=== PATIENT | female | born 1940 | race Caucasian/White ===

== ENCOUNTER → 2016-12-17 | Outpatient (CLI) | payer OTHER ==
--- NOTE | 2016-12-17 15:15 | REPMRS ---
Patient History The patient states she had a clinical breast exam in 08/2016. Patient has history of cancer in the right breast at age 55. No known family history of cancer. Malignant excisional biopsy of the right breast, 1995. Radiation therapy of the right breast, 1995. Took hormonal contraceptives for 3 months. Took tamoxifen for 5 years. Digital Woman Screen Mammo: December 17, 2016 - Exam #: [id number] Bilateral CC and MLO view(s) were taken. Technologist: Karo Salas, Technologist Prior study comparison: November 23, 2015, digital woman screen mammo performed at [facility]. October 03, 2014, digital woman screen mammo performed at [facility]. September 30, 2013, bilateral bilat screen digital mammo[facility] FINDINGS: The breast tissue is heterogeneously dense. This may lower the sensitivity of mammography. There has been no change in the appearance of the mammogram from the prior studies. There is a moderate amount of residual fibroglandular tissue which is greater left than right as before. Smaller right breast from prior surgery for malignancy. There is no interval development of dominant mass, architectural distortion, or clustered microcalcification typical of malignancy. Scattered lymph nodes are seen in the axillae.Large coarse benign appearing calcifications are present. No significant changes when compared with prior studies. ASSESSMENT: BI-RADS/ACR category 2 mammogram. Benign finding(s). Recommendation Routine screening mammogram in 1 year (for women over age 40). This mammogram was interpreted with the aid of an FDA-approved computer-aided dectection system. A. Negative x-ray reports should not delay biopsy if a dominant or clinically suspicious mass is present. B. Four to eight percent of cancers are not identified by mammography. C. Adenosis and dense breast may obscure an underlying neoplasm. Electronically Signed By: lVadimir Patel MD 12/17/16 2205
== END ==
LOC: M WHC 12:38
PROVIDERS: ATTEND Family Medicine
DX: Z12.31 Encounter for screening mammogram for malignant neoplasm of breast (principal)

== ENCOUNTER 2017-12-17 08:23 | Day surgery (SDC) | payer OTHER ==
[~2017-12-17 08:23] MED LIST: ACETAMINOPHEN 325 MG TAB PO; PHENYLEPHRINE HCL 10 % OPHTH. SOL 5ML XX; PROPARACAINE 0.5% OPHTH SOL 15ML OD
[2017-12-17] MEDS ORDERED: TRIMETHOBENZAMIDE 300 MG CAP PO ×2 (08:30)
[2017-12-17] MEDS: PHENYLEPHRINE 2.5% OPHTH SOL 2ML XX ×2 (08:48)
[2017-12-17] MEDS: LIDOCAINE 3.5 % 1ML OPHTH TOPICAL GEL OU ×2 (08:48)
[2017-12-17] MEDS: TROPICAMIDE 1% OPHTH SOLN 2ML XX ×2 (08:48)
[2017-12-17] MEDS: OFLOXACIN 0.3 % (OCUFLOX) OPTH SOL 5ML XX ×2 (08:48)
[2017-12-17] MEDS: CYCLOPENTOLATE 2% OPHTH SOLN 2ML BTL XX ×2 (08:48)
[2017-12-17] MEDS ORDERED: MIDAZOLAM INJ 2 MG/2 ML VIAL (J2250) As Ordered ×2 (08:56)
[2017-12-17] MEDS ORDERED: fentaNYL 100 MCG/2 ML INJECTION (J3010) As Ordered ×2 (08:57)
[2017-12-17] MEDS: CEFUROXIME 1MG/0.1ML INTRACAMERAL INJ As Ordered ×4 (09:09→09:33)
[2017-12-17] MEDS: POVIDONE-IODINE 5% OPHTH PREP SOL 30ML As Ordered ×2 (09:24)
[2017-12-17] MEDS: LIDOCAINE 1% SDV 5 ML VIAL As Ordered ×2 (09:33)
[2017-12-17] MEDS: HEALON DUET (HEALON 10MG/ML 0.55ML & HEALON ENDOCOAT 30MG/ML 0.85ML) As Ordered ×2 (09:33)
[2017-12-17] MEDS: BSS with VANC/TOB/EPI for EYE CASES IR ×2 (09:33)
[2017-12-17] MEDS: KETOROLAC 0.5% OPHTH SOLN OD ×2 (10:03)
[2017-12-17] MEDS: AcetaZOLAMIDE 500 MG ER CAP PO ×2 (10:03)
== END 2017-12-17 10:30 | disposition home or self-care (01) ==
LOC: M SDC 08:23
DX: H25.9 Unspecified age-related cataract (principal); H40.811 Glaucoma with increased episcleral venous pressure, right eye; I50.9 Heart failure, unspecified; Z79.899 Other long term (current) drug therapy; Z92.3 Personal history of irradiation; R06.83 Snoring
CPT/HCPCS: 66984

== ENCOUNTER 2021-03-20 13:12 | Inpatient (IN) | payer MEDICARE ==
[~2021-03-20] VITALS: Ht 162.6 cm; Wt 78.3 kg
[~2021-03-20 13:12] MED LIST changes: -ALBU8.5H INH; -ASPI81TA26 PO; -VITMTA PO; -XALA0.007 OU
[2021-03-20] MEDS ORDERED: VITMTA PO (13:25)
[2021-03-20] MEDS ORDERED: ASPI81TA26 PO (13:25)
[2021-03-20] MEDS ORDERED: ALBU8.5H INH (13:25)
[2021-03-20 14:02] LABS: BASO # 0.1 10^3/uL (0.0-0.2); BASO % 0.4 % (0.0-1.0); EOS % 0.2 % (0.0-3.0); HEMATOCRIT 42.5 % (36.0-47.0); LYMPH # 0.7 10^3/uL (1.5-5.0); LYMPH % 5.1 % (24.0-44.0); MEAN CORPUSCULAR HEMOGLOBIN 30.6 pg (27.0-33.0); MEAN CORPUSCULAR HGB CONC 32.9 g/dl (32.0-36.5); MEAN CORPUSCULAR VOLUME 92.8 fl (80.0-96.0); MONO # 0.3 10^3/uL (0.0-0.8); MONO % 2.2 % (2.0-8.0); NEUTROPHILS # 11.9 10^3/uL (1.5-8.5); NEUTROPHILS % 91.6 % (36.0-66.0); PLATELET COUNT, AUTOMATED 197 10^3/uL (150-450); RED BLOOD COUNT 4.58 10^6/uL (4.00-5.40)
[2021-03-20 14:03] LABS: ABG BASE EXCESS 2.4 (-2.0-2.0); ABG O2 SATURATION 93.9 % (95.0-99.0); ABG PARTIAL PRESSURE CO2 36.9 mmHg (35.0-45.0); ABG PARTIAL PRESSURE O2 62.5 mmHg (75.0-100.0); ABG STANDARD HCO3 26.5 MEQ/L (22.0-26.0); ABG TOTAL CO2 27.1 MEQ/L (23.0-31.0); ABG pH (ARTERIAL) 7.465 UNITS (7.350-7.450)
[2021-03-20] MEDS ORDERED: NITROGLYCERIN 2% OINT 1 GM *U/D* PKT TOP ONE (14:10)
--- NOTE | 2021-03-20 14:10 | REP ---
INDICATION: DYSPNEA/COUGH. 1:56 p.m. radiograph. COMPARISON: Comparison chest x-ray March 20, 2021. 12:27 p.m. radiograph. TECHNIQUE: Portable upright AP chest radiograph. FINDINGS: Right hemidiaphragm remains elevated. There is a prominent interstitial pattern diffusely. These are a little more prominent or confluent in the right upper lobe region. These findings are unchanged from the earlier radiograph. Monitoring electrodes and oxygen delivery tubing are present. Heart size is unchanged and mildly prominent. Old healed fracture is seen in the surgical neck of the left humerus.. IMPRESSION: Diffuse interstitial lung disease pattern most pronounced in the right upper lobe unchanged from earlier today. Elevated right hemidiaphragm. Mild cardiomegaly.. <Electronically signed by Kalin Baum > 03/20/21 [id number]
[2021-03-20 14:37] LABS: ALBUMIN 3.7 GM/DL (3.2-5.2); ALT/SGPT 23 U/L (12-78); BILIRUBIN,DIRECT 0.1 MG/DL (0.0-0.2); BILIRUBIN,TOTAL 0.7 MG/DL (0.2-1.0); BLOOD UREA NITROGEN 15 MG/DL (7-18); CALCIUM LEVEL 8.8 MG/DL (8.8-10.2); CARBON DIOXIDE LEVEL 27 MEQ/L (21-32); CHLORIDE LEVEL 104 MEQ/L (98-107); CPK CREATINE PHOSPHOKINASE 72 U/L (26-192); CREATININE FOR GFR 0.88 MG/DL (0.55-1.30); GLOMERULAR FILTRATION RATE > 60.0 (>39); GLUCOSE, FASTING 142 MG/DL (70-100); MB/CK RELATIVE INDEX 1.39 (< OR =4); NT-PRO BNP 874 PG/ML (<450); POTASSIUM SERUM 4.3 MEQ/L (3.5-5.1); SODIUM LEVEL 136 MEQ/L (136-145); TOTAL PROTEIN 7.9 GM/DL (6.4-8.2); TROPONIN I < 0.02 NG/ML (< 0.10)
[2021-03-20] MEDS ORDERED: ISOVUE-370 76% 100ML VIAL As Ordered ONE (14:41)
[2021-03-20] MEDS ORDERED: FUROSEMIDE 40MG/4ML VIAL (J1940) IV ONE (15:00)
--- NOTE | 2021-03-20 15:46 | REP ---
INDICATION: sob COMPARISON: None. TECHNIQUE: Axial contrast enhanced images from the thoracic inlet to the upper abdomen using pulmonary embolus technique with multiplanar re-formations. 75 ml Isovue 370 intravenous contrast material administered without complication. This CT examination was performed using the following dose reduction techniques: Automated exposure control, adjustment of mA and/or kv according to the patient's size, and use of iterative reconstruction technique. FINDINGS: Examination is somewhat limited by respiratory motion artifact and diffuse pleuroparenchymal changes. No obvious pulmonary embolus noted. Thoracic aorta without aneurysm or dissection. Cardiomegaly and atherosclerotic changes are appreciated without pericardial effusion. Lung rangel demonstrate advanced COPD/emphysematous changes with bronchiectasis and scattered chronic interstitial disease. Patchy diffuse bilateral ground-glass opacities along with mild primarily lingular and bibasilar atelectasis. No significant effusion. No pneumothorax. Mediastinal and hilar adenopathy with pre-vascular lymph nodes measuring up to 19 mm noted. IMPRESSION: 1. No definite pulmonary embolus. 2. Advanced chronic interstitial disease. 3. Scattered bilateral ground-glass opacities, minimal basilar atelectasis, and small left pleural reaction suggest superimposed acute changes. <Electronically signed by Hernan Durant > 03/20/21 [id number]
[2021-03-20] MEDS ORDERED: XALA0.007 OU (16:41)
[2021-03-20 17:39] LABS: RSV AMPLIFICATION NEGATIVE (NEGATIVE)
[2021-03-20] MEDS ORDERED: LABETALOL 100MG/20ML VIAL IV STA (17:45)
[2021-03-20] MEDS ORDERED: ACETAMINOPHEN TAB 650MG DOSE (2X325MG) PO PRN (17:45)
[2021-03-20] MEDS ORDERED: MOM 30ML SUSPENSION UDC PO PRN (17:45)
[2021-03-20] MEDS ORDERED: LEVALBUTEROL 1.25 MG/0.5 ML CONCENTRATE NEB INH PRN (17:45)
--- NOTE | 2021-03-20 18:02 | HPEPDOC ---
[facility] Medical History & Physical Date of Admission Mar 20, 2021 Date of Service: Mar 20, 2021 History and Physical Chief complaint: Presented to the emergency room with complaints of weakness and shortness of breath that has been progressive 1 month History of present illness: Patient is a 80-year-old female who presented to the emergency room from urgent care with weakness and shortness of breath. Patient reports that over the duration of 1 month her shortness of breath has been progressively worsening. Patient denies any chest pain but does report a cough that is nonproductive. She denies any palpitations. Patient reports that she sleeps with 2 pillows at night chronically has woken up several times recently with shortness of breath. She herself denies any lower extremity edema. Patient denies any nausea, vomiting, abdominal pain consultation, diarrhea, or urinary discomfort. She denies any recent fevers, chills. Patient reports that recently she has taken [id number] Claritin medication for her sinuses over the last 3 days. Patient reports that she had a nuclear stress test completed one year ago with Dr. Lindquist that was reportedly negative. Past Medical History: Hx of Hypertension; reported to have stopped taking medications. 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 Review of Systems: 10 point review of systems complete, all negative otherwise stated in HPI Physical exam: - Vitals: BP [194/93], HR [82], RR [16], Sat [96%RA], Temp [97.6F] - General: Lying in bed, No acute distress, Speaking in full sentences, AAOx3 - HEENT: NC, AT, PERRLA - CVS: RRR, +S1S2 - Lungs: Fair air entry bilaterally, No appreciable wheezing / rhonchi; bilat eral crackles can be appreciated - Abdomen: Soft, Non-distended, Non-tender - Extremities: Trace to minimal LE edema, No calf tenderness - Neuro: No focal motor or sensory deficit - Skin: No visible rashes Labs: See below Imaging: See below EKG: See below Assessment and Plan: Hypertensive urgency - Patients blood pressure emergency room was noted to be systolics of 190s to 200 - Patient is reporting SOB with exertion - Physical with evidence of crackles - EKG reviewed without any ischemic changes - Troponin x 2 sets done today negative; will continue to tend - s/p Furosemide and Nitroglycerin in the ER - Will resume Lisinopril based on prior outpatient regimen; will give dose of Lisinopril Acute hypoxic respiratory failure - possibly 2/2 acute CHF exacerbation (2/2 above), less likely 2/2 COPD - Patient reports that she does feel better currently well on oxygen - BNP elevated - Lungs with crackles noted - s/p Furosemide - Will continue with strict ins/outs, daily weight, fluid restriction - Will check ECHO - c/w Telemetry monitoring - Will hold additional diuretics Leukocytosis - Reports a non-productive cough - Patient is afebrile - Imaging without any signs of pneumonia - Will hold off on starting antibiotics at this time - Will check procalcitonin Glaucoma - c/w Home medications DVT prophylaxis - Will start Lovenox Vital Signs Vital Signs Date Time Temp Pulse Resp B/P (MAP) Pulse Ox O2 Delivery O2 Flow Rate FiO2 03/20/21 17:30 90 184/80 (114) 97 Nasal Cannula 4.0 03/20/21 13:12 97.6 24 Laboratory Data Labs 24H Laboratory Tests 2 03/20/21 13:43: Blood Gas Bicarbonate Standard 26.5H, Arterial Blood pH 7.465H, Arterial Blood Partial Pressure CO2 36.9, Arterial Blood Partial Pressure O2 62.5L, Arterial Blood Total CO2 27.1, Arterial Blood HCO3 26.0, Arterial Blood Base Excess 2.4H, Arterial Blood Oxygen Saturation 93.9L 03/20/21 13:44: Immature Granulocyte % (Auto) 0.5, Neutrophils (%) (Auto) 91.6H, Lymphocytes (%) (Auto) 5.1L, Monocytes (%) (Auto) 2.2, Eosinophils (%) (Auto) 0.2, Basophils (%) (Auto) 0.4, Neutrophils # (Auto) 11.9H, Lymphocytes # (Auto) 0.7L, Monocytes # (Auto) 0.3, Eosinophils # (Auto) 0.0, Basophils # (Auto) 0.1, Nucleated Red Blood Cells % (auto) 0.0, Anion Gap 5L, Glomerular Filtration Rate > 60.0, Calcium Level 8.8, Total Bilirubin 0.7, Direct Bilirubin 0.1, Aspartate Amino Transf (AST/SGOT) 32, Alanine Aminotransferase (ALT/SGPT) 23, Alkaline Phosphatase 87, Total Creatine Kinase 72, Creatine Kinase MB 1.0, Creatine Kinase MB Relative Index 1.39, Troponin I < 0.02, JM-Vde-S-Type Natriuretic Peptide 874H, Total Protein 7.9, Albumin 3.7, Albumin/Globulin Ratio 0.9L 03/20/21 16:47: Coronavirus (COVID-19)(PCR) NEGATIVE, Influenza Type A (RT-PCR) NEGATIVE, Influenza Type B (RT-PCR) NEGATIVE, Respiratory Syncytial Virus (PCR) NEGATIVE CBC/BMP Laboratory Tests 03/20/21 13:44 Home Medications Scheduled Aspirin (Aspirin EC) 81 Mg Tablet.dr, 81 MG PO QHS Latanoprost (Xalatan) 0.005% 2.5ML Drops, 1 DROP OU QHS Multivitamins (Thera M Plus Tablet) 1 Each Tablet, 1 TAB PO QHS Scheduled PRN Albuterol Sulfate (Albuterol Sulfate Hfa) 8.5 Gm Hfa.aer.ad, 2 PUFFS INH Q4H PRN for SHORTNESS OF BREATH Allergies Coded Allergies: naproxen (Verified Adverse Reaction, Unknown, ITCHING, 03/20/21) ELOY STEWART MD Mar 20, 2021 18:02
[2021-03-20 19:32] LABS: CK-MB VALUE MASS < 1.0 NG/ML (<3.6); CPK CREATINE PHOSPHOKINASE 39 U/L (26-192); MB/CK RELATIVE INDEX 2.56 (< OR =4); TROPONIN I < 0.02 NG/ML (< 0.10)
[2021-03-20] MEDS: LEVALBUTEROL 1.25 MG/0.5 ML CONCENTRATE NEB INH SCH ×2 (20:10→23:07)
[2021-03-20 20:24] VITALS: BP 141/75
[2021-03-20] MEDS: DOCUSATE SODIUM 100MG CAPSULE PO SCH (21:30)
[2021-03-20] MEDS: guaiFENesin ER 600 MG TAB PO SCH (21:30)
[2021-03-21 00:26] VITALS: BP 142/66
[2021-03-21 01:36] LABS: CK-MB VALUE MASS 1.1 NG/ML (<3.6); CPK CREATINE PHOSPHOKINASE 39 U/L (26-192); MB/CK RELATIVE INDEX 2.82 (< OR =4); TROPONIN I < 0.02 NG/ML (< 0.10)
[2021-03-21] MEDS: LEVALBUTEROL 1.25 MG/0.5 ML CONCENTRATE NEB INH SCH ×6 (03:04→23:59)
[2021-03-21 03:26] VITALS: BP 153/74
[2021-03-21 05:28] LABS: BASO % 0.1 % (0.0-1.0); HEMATOCRIT 37.8 % (36.0-47.0); HEMOGLOBIN 12.5 g/dl (12.0-15.5); LYMPH # 1.1 10^3/uL (1.5-5.0); LYMPH % 8.2 % (24.0-44.0); MEAN CORPUSCULAR HEMOGLOBIN 30.2 pg (27.0-33.0); MEAN CORPUSCULAR HGB CONC 33.1 g/dl (32.0-36.5); MEAN CORPUSCULAR VOLUME 91.3 fl (80.0-96.0); MONO # 0.9 10^3/uL (0.0-0.8); MONO % 6.3 % (2.0-8.0); NEUTROPHILS # 11.7 10^3/uL (1.5-8.5); NEUTROPHILS % 84.8 % (36.0-66.0); PLATELET COUNT, AUTOMATED 185 10^3/uL (150-450); RED BLOOD COUNT 4.14 10^6/uL (4.00-5.40); WHITE BLOOD COUNT 13.8 10^3/uL (4.0-10.0)
[2021-03-21 05:55] LABS: BLOOD UREA NITROGEN 13 MG/DL (7-18); CALCIUM LEVEL 8.5 MG/DL (8.8-10.2); CARBON DIOXIDE LEVEL 29 MEQ/L (21-32); CHLORIDE LEVEL 105 MEQ/L (98-107); CREATININE FOR GFR 0.72 MG/DL (0.55-1.30); GLOMERULAR FILTRATION RATE > 60.0 (>39); GLUCOSE, FASTING 134 MG/DL (70-100); MAGNESIUM LEVEL 2.2 MG/DL (1.8-2.4); POTASSIUM SERUM 3.7 MEQ/L (3.5-5.1); SODIUM LEVEL 139 MEQ/L (136-145)
[2021-03-21 08:00] VITALS: BP 154/74
[2021-03-21] MEDS: guaiFENesin ER 600 MG TAB PO SCH ×2 (08:07→21:44)
[2021-03-21] MEDS: FUROSEMIDE 40MG/4ML VIAL (J1940) IV SCH ×2 (08:07→16:43)
[2021-03-21] MEDS: ENOXAPARIN 40MG/0.4ML SYRINGE (J1650 PER 10MG) SC SCH (08:08)
[2021-03-21] MEDS: DOCUSATE SODIUM 100MG CAPSULE PO SCH ×2 (08:08→21:00)
--- NOTE | 2021-03-21 10:03 | IPNPDOC ---
Text Note Date of Service The patient was seen on 03/21/21. NOTE Subjective: Patient is a 80-year-old female who presented to the ER from urgent care with weakness and shortness of breath. Patient reports that over the duration of 1 month her shortness of breath has been progressively worsening. Patient reports that she sleeps with 2 pillows at night chronically has woken up several times recently with shortness of breath. Patient reports that she had a nuclear stress test completed one year ago with Dr. Lindquist that was reportedly negative. Upon to emergency room, patient's systolic blood pressure was noted to be in the 200s. Patient was admitted to the hospital service for hypertensive urgency and suspected CHF exacerbation. Patient was seen and examined at the bedside. Currently patient reports that her breathing is doing better. She denies any chest pain or palpitations. Denies any cough, nausea, vomiting, abdominal pain or diarrhea. Objective: Vitals (See below) General: Sitting up in bed and appears comfortable, AAOx3 HEENT: NC, AT CVS: +S1S2 Lungs: Fair air entry b/l, there are crackles appreciated bilaterally. No evidence of wheezing or rhonchi Abdomen: Soft, ND, NT Extremities: - Edema, - Calf tenderness Imaging: CXR 03/20: Diffuse interstitial lung disease pattern most pronounced in the right upper lobe unchanged from earlier today. Elevated right hemidiaphragm. Mild cardiomegaly. CTA Chest 03/20: 1. No definite pulmonary embolus. 2. Advanced chronic interstitial disease. 3. Scattered bilateral ground-glass opacities, minimal basilar atelectasis, and small left pleural reaction suggest superimposed acute changes. Assessment and plan: HTN; s/p Hypertensive urgency - Patients blood pressure ER was noted to be systolics of 190s to 200; blood pressures doing better this morning - EKG reviewed without any ischemic changes - Troponin trend negative - s/p Furosemide and Nitroglycerin in the ER - c/w Lisinopril based on prior outpatient regimen Acute hypoxic respiratory failure - possibly 2/2 acute CHF exacerbation (2/2 above), possibly 2/2 interstitial lung disease - Clinically patient has reported improvement in - BNP elevated - Lungs with crackles noted bilaterally - c/w strict ins/outs, daily weight, fluid restriction - ECHO pending - c/w Telemetry monitoring - Will continue with Diuresis this morning Leukocytosis - Reports a non-productive cough - Patient is afebrile - Imaging without any signs of pneumonia - Will continue to hold antibiotics at this time - Procalcitonin negative Glaucoma - c/w Home medications DVT prophylaxis - c/w Lovenox Disposition: - Pending clinical improvement [place], I+O [place], I+O Laboratory Tests 03/20/21 13:44 03/21/21 04:59 Vital Signs Date Time Temp Pulse Resp B/P (MAP) Pulse Ox O2 Delivery O2 Flow Rate FiO2 03/21/21 08:00 98.1 90 20 154/74 (100) 97 Nasal Cannula 3.0 I&O- Last 24 Hours up to 6 AM 03/21/21 05:59 Intake Total 220 ml Output Total 950 ml Balance -730 ml ELOY STEWART MD Mar 21, 2021 10:03
--- NOTE | 2021-03-21 10:59 | ECGEPIP ---
[facility] - ED Test Date: 2021-03-20 Pat Name: LUIS IGLESIAS Department: Room: - Gender: Female Route Rider: ELLEN : 1940 Requested By: LENI Cee Order Number: [id number] Reading MD: Stephanie Patel Measurements Intervals [place] Rate: 93 P: 44 SC: 164 QRS: 0 QRSD: 114 T: 15 QT: 394 QTc: 489 Interpretive Statements Normal sinus rhythm Possible Left atrial enlargement Right bundle branch block NSTTW abnormalities prolonged qtc No prior Electronically Signed on 03-21-2021 10:59:02 EDT by Stephanie Patel
[2021-03-21 12:00] VITALS: BP 133/64
[2021-03-21 16:00] VITALS: BP 140/71
[2021-03-21] MEDS ORDERED: SODIUM CHLORIDE HYPERTONIC 3% 15ML NEB SOL NEB ONE (16:00)
[2021-03-21 20:00] VITALS: BP 128/63
[2021-03-21] MEDS: LATANOPROST 0.005% OPHTH SOLN 2.5 ML OU SCH (21:44)
[2021-03-22] VITALS (8 sets, daily range): BP systolic 120–140; BP diastolic 58–72
[2021-03-22] MEDS: LEVALBUTEROL 1.25 MG/0.5 ML CONCENTRATE NEB INH SCH ×2 (04:00→07:10)
[2021-03-22 04:58] LABS: BASO # 0.1 10^3/uL (0.0-0.2); BASO % 0.7 % (0.0-1.0); EOS # 0.3 10^3/uL (0.0-0.5); EOS % 2.5 % (0.0-3.0); HEMATOCRIT 38.8 % (36.0-47.0); HEMOGLOBIN 12.7 g/dl (12.0-15.5); LYMPH # 2.8 10^3/uL (1.5-5.0); LYMPH % 24.1 % (24.0-44.0); MEAN CORPUSCULAR HEMOGLOBIN 29.7 pg (27.0-33.0); MEAN CORPUSCULAR HGB CONC 32.7 g/dl (32.0-36.5); MEAN CORPUSCULAR VOLUME 90.7 fl (80.0-96.0); MONO # 1.2 10^3/uL (0.0-0.8); MONO % 10.4 % (2.0-8.0); NEUTROPHILS # 7.1 10^3/uL (1.5-8.5); PLATELET COUNT, AUTOMATED 196 10^3/uL (150-450); RED BLOOD COUNT 4.28 10^6/uL (4.00-5.40); WHITE BLOOD COUNT 11.4 10^3/uL (4.0-10.0)
[2021-03-22 05:24] LABS: BLOOD UREA NITROGEN 20 MG/DL (7-18); CALCIUM LEVEL 8.6 MG/DL (8.8-10.2); CARBON DIOXIDE LEVEL 34 MEQ/L (21-32); CHLORIDE LEVEL 102 MEQ/L (98-107); CREATININE FOR GFR 0.85 MG/DL (0.55-1.30); GLOMERULAR FILTRATION RATE > 60.0 (>39); GLUCOSE, FASTING 98 MG/DL (70-100); MAGNESIUM LEVEL 2.2 MG/DL (1.8-2.4); POTASSIUM SERUM 3.7 MEQ/L (3.5-5.1); SODIUM LEVEL 140 MEQ/L (136-145)
[2021-03-22] MEDS ORDERED: BUDESONIDE 180MCG INHALER (PULMICORT FLEXHALER) INH SCH (08:00)
[2021-03-22] MEDS: DOCUSATE SODIUM 100MG CAPSULE PO SCH ×2 (08:41→20:53)
[2021-03-22] MEDS: guaiFENesin ER 600 MG TAB PO SCH ×2 (08:41→20:53)
[2021-03-22] MEDS: FUROSEMIDE 40MG/4ML VIAL (J1940) IV SCH (08:42)
[2021-03-22] MEDS: ENOXAPARIN 40MG/0.4ML SYRINGE (J1650 PER 10MG) SC SCH (08:42)
[2021-03-22] MEDS: predniSONE 20 MG TAB PO SCH (09:45)
[2021-03-22] MEDS: IPRATROPIUM 0.5MG/ALBUTEROL 2.5MG INH SOL UD 3ML (DUONEB) NEB SCH ×3 (10:15→19:31)
--- NOTE | 2021-03-22 10:29 | CR ---
PULMONARY CONSULTATION DATE: 03/22/2021 REASON FOR CONSULTATION: Shortness of breath, hypoxia. SUBJECTIVE: Mrs. Strickland is a 80-year-old female who presents to [facility] ER with progressive shortness of breath that has worsened in the last week to the point where she is gasping for air with any minimal exertion. Her story dates back two years ago when the shortness of breath started and was diagnosed with pneumonia at [facility] and was treated and improved to her baseline. She states that she was diagnosed with pneumonia about 1-2 times previously. She started noticing worsening in her shortness of breath again about a year ago where she would walk from her house to her mailbox and would get out of breath and needed to sit down to alleviate her symptom. She also noticed increased dry cough in the past year but states she feels more of a chest congestion as well as throat irritation. Two days ago, she reports that she was eating at a restaurant and upon getting up to leave she stood up, walked outside and states that the humid air made her gasp for air and she felt weak and short of breath. Thereafter, presented to the ER for further assessment. She denies any chest pain, palpitations, paroxysmal nocturnal dyspnea, orthopnea or hemoptysis or lower extremity edema. REVIEW OF SYSTEMS: CONSTITUTIONAL: Denies fever or chills, or unintentional weight loss. HEENT: Denies any headache, neck pain, decreased hearing, vision changes, nasal discharge, epistaxis, hoarseness, sore throat, lumps or bumps in the neck region. RESPIRATORY: Positive for shortness of breath with minimal exertion and increased cough that is nonproductive of sputum, chest congestion, and post nasal drip. Denies hemoptysis CARDIO: Denies any chest pain, palpitations, or lower extremity edema, orthopnea, or paroxysmal nocturnal dyspnea. GI: Denies any changes in bowel habits, rectal bleeding, diarrhea, heartburn, loss off appetite. She does have chronic constipation. MSK: Denies any joint pain or swelling, or effusions. Denies redness or erythema to her joints or any trauma. NEUROLOGIC: Denies any seizures, numbness, tingling, tremors, fainting or dizziness. PAST MEDICAL HISTORY: 1. Hypertension. 2. Glaucoma. 3. Unspecified heart failure. PAST SURGICAL HISTORY: 1. Breast cancer status post lumpectomy. 2. Partial hysterectomy. 3. [place] teeth extraction. 4. Tonsillectomy. SOCIAL HISTORY: Never smoker. Occasional alcohol use. Denies any illicit drug use. 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 Denies any toxic chemical exposures or any inhalation. Denies owning any pets. FAMILY HISTORY: Dad has a history of asthma, hypertension. Patient does not remember mom's past medical history. PHYSICAL EXAMINATION: VITAL SIGNS: Temperature 97.4, heart rate 89, respirations 24, blood pressure 138/64, O2 sat 92% on 1 liter nasal cannula. I&O net negative 700 on 03/20, net positive 160ml yesterday, net neg 150ml from this morning GENERAL: Patient is awake, alert, oriented, appropriate mood and affect. Speech is clear, able to speak in full sentences without any accessory muscle or retractions. HEENT: Sclera are clear, anicteric. Pupils equal and reactive to light. Mucous membranes are on dry side. No lesion in oral mucosa. Tongue is midline. NECK/LYMPH: The neck is supple. There is no tracheal deviation or mass. Cannot appreciate any bruits. No significant palpable lymphadenopathy. CARDIAC: Normal S1 and S2, there is no significant audible murmur, rubs or gallops. There is no evidence of JVP. She has 1+ upper and lower extremity edema PULMONARY: She has inspiratory crackles in bilateral lung bases, expiratory wheezes also heard. There is no dullness to percussion. ABDOMEN: Soft, nontender and nondistended. No hepatosplenomegaly or masses palpated. EXTREMITIES: She does not have any joint enlargement, effusions, or fractures. There is no cyanosis, clubbing or bruising, or calf tenderness. NEUROLOGIC/PSYCH: She has appropriate mood and affect. No history of depression, anxiety, suicidal ideation or thoughts of self-harm. LABS: White count 11.4, H and H 12.7/38.8, platelets 196,000. Sodium 140, potassium 3.7, chloride 102, carbon dioxide 34, anion gap 4, BUN and creatinine 20/0.85. Fasting glucose 98, calcium 8.6, magnesium 2.2. IMAGING: Chest x-ray from 03/20 shows elevated right hemidiaphragm, prominent interstitial pattern, more prominent or confluent in the right upper lobe region. She has diffuse interstitial lung disease pattern and mild cardiomegaly reported. CTA of the chest. Impression: No definite pulmonary embolus. She does have advanced chronic interstitial disease as mentioned on chest x-ray, there are scattered bilateral ground-glass opacities with minimal bibasilar atelectasis. There are small pleural effusions on both left and right side. ASSESSMENT AND PLAN: This is a 80-year-old female who presented with progressive shortness of breath that has worsened in the last week as well as reporting dry cough and chest congestion. On presentation to the ER, she was given Lasix for diuresis, however continues to have worsening shortness of breath, desatting to the 80s with minimal exertion. Pulmonary Service was consulted for further recommendation on the patient. 1. Unspecified heart failure. Echo has been ordered with results pending. She has elevated pro-BNP, however we do not have a baseline to compare with. She does have upper and lower extremity edema 1+ as well as cardiomegaly on imaging with bilateral small effusions. It's likely that she may already have a diastolic dysfunction given her age; however, would be cautious with on the diureses as her BUN/Cr bumped up from prior day. Will add DuoNeb NEB q6h PRN and Budesonide neb p.r.n. and maintain O2 saturation >90%. 2. Bronchiectasis. This is likely a component of interstitial lung disease. She does have inspiratory crackles on exam. I would continue with the Mucinex. Will order for a rheumatoid panel as well as alpha I antitrypsin deficiency. Will order for AFB smear and culture to r/.o mycobacteria species. Gram stain and cx ordered with results pending. Would hold off testing for immunoglobulins analysis in an inpatient setting as there may be false negatives when tested on an acute patient. I will start her on a steroid taper starting with 40 mg daily for seven days followed by 30mg, 20mg, 10mg and have her follow-up with outpatient Pulmonology within the 7 days of hospital discharge. 3. 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 but currently continue oxygen, titrate her oxygen greater than 90%. 4. DVT prophylaxis with Lovenox. 5. Code status: Full code. I, Kamari Freitas, agree with the history and physical as outlined above after my independent exam and history. There remains a question of ILD. There is clearly bronchiectasis. This patient will require follow up for the serologic work up that was initiated and an empiric trial of steroids was recommended. ADDENDUM: This is a 80-year-old female who presented to the hospital with acute shortness of breath and hypoxia. I, Kamari Freitas, conducted an independent interview and physical exam. She was initially admitted with heart failure, was diuresed. I do believe she likely has a component of diastolic dysfunction. On chest imaging there is evidence of bronchiectasis. She has not been worked up for this in the past. She has had no prior recurrent exacerbations. She has no prior history of asthma. We have ordered workup for Aspergillus and alpha I antitrypsin deficiency but at this point in time deferring immunodeficiency until she is in an outpatient baseline condition. I do agree that there is a possibility of interstitial lung disease. The patient currently does not have any signs or symptoms that she is actively infected, however I cannot rule out non-tuberculosis bacteria and therefore sputum cultures are being obtained. I have added prednisone and nebulized therapy to her regimen. She will follow-up as an outpatient in the clinic with pulmonary function testing. She does have restricted disease from her elevated right hemidiaphragm. There is some evidence of peripheral fibrosis without significant findings to suggest idiopathic pulmonary fibrosis. She will require serologic workup which has been initiated in the hospital. After my independent history and physical, I agree with the assessment and plan as outlined above by the resident. Addendum dictated: GILMA 03/22/2021 0932 Addendum transcribed: isra 03/22/2021 0934 NATALIYA
--- NOTE | 2021-03-22 10:50 | IPNPDOC ---
Text Note Date of Service The patient was seen on 03/22/21. NOTE Subjective: Patient is a 80-year-old female who presented to the ER from urgent care with weakness and shortness of breath. Patient reports that over the duration of 1 month her shortness of breath has been progressively worsening. Patient reports that she sleeps with 2 pillows at night chronically has woken up several times recently with shortness of breath. Patient reports that she had a nuclear stress test completed one year ago with Dr. Lindquist that was reportedly negative. Upon to emergency room, patient's systolic blood pressure was noted to be in the 200s. Patient was admitted to the hospital service for hypertensive urgency and suspected CHF exacerbation. Patient was seen and examined at the bedside. Patient was ambulating in the room without oxygen and was saturating at 84%. She sat back down. This was placed. Her saturation improved back to 91%. Patient reports that she does not use any chest pain or palpitations. Does experiencing shortness breath, without any significant expectoration of sputum. Patient denies any nausea, vomiting, abdominal pain, diarrhea, or urinary discomfort Objective: Vitals (See below) General: He was ambulating the room appeared short of breath, but was comfortable after sitting, awake and alert, oriented 3 HEENT: NC, AT CVS: +S1S2 Lungs: There is evidence of crackles at bilateral lung bases. No wheezing or rhonchi Abdomen: Soft, non-distended and nontender Extremities: Lower extremities are without any edema, - Calf tenderness Imaging: CXR 03/20: Diffuse interstitial lung disease pattern most pronounced in the right upper lobe unchanged from earlier today. Elevated right hemidiaphragm. Mild cardiomegaly. CTA Chest 03/20: 1. No definite pulmonary embolus. 2. Advanced chronic interstitial disease. 3. Scattered bilateral ground-glass opacities, minimal basilar atelectasis, and small left pleural reaction suggest superimposed acute changes. Assessment and plan: HTN; s/p Hypertensive urgency - Blood pressures have improved throughout this hospital course - EKG reviewed without any ischemic changes - Troponin x3 negative - c/w Lisinopril based on prior outpatient regimen Acute hypoxic respiratory failure - possibly 2/2 acute CHF exacerbation (2/2 above), possibly 2/2 interstitial lung disease - Patient has reported improvement of breathing, but is still requiring supplemental oxygen - BNP elevated - Bilateral lung crackles noted - c/w strict ins/outs, daily weight, fluid restriction - ECHO complete; report pending - c/w Telemetry monitoring - Will DC IV Furosemide after AM dose; will consider starting PO Furosemide tomorrow - Pulmonology has been consulted; appreciate their input; Budesonide and prednisone have been started this morning Leukocytosis - Reports a non-productive cough - Patient is afebrile - Imaging without any signs of pneumonia - Will continue to hold antibiotics at this time - Procalcitonin negative - Sputum was induced and sent to lab for cultures Glaucoma - c/w Home medications DVT prophylaxis - c/w Lovenox Disposition: - Pending clinical improvement VS,Fishbone, I+O VS, Fishbone, I+O Laboratory Tests 03/22/21 04:41 Vital Signs Date Time Temp Pulse Resp B/P (MAP) Pulse Ox O2 Delivery O2 Flow Rate FiO2 03/22/21 07:54 97.4 89 24 138/64 (88) 92 Nasal Cannula 1.0 I&O- Last 24 Hours up to 6 AM 03/22/21 06:00 Intake Total 840 ml Output Total 800 ml Balance 40 ml ELOY STEWART MD Mar 22, 2021 10:50
[2021-03-22] MEDS: BUDESONIDE 0.5 MG/2 ML INHALATION SUSPENSION INH SCH ×2 (11:05→19:31)
[2021-03-22] MEDS ORDERED: BUDESONIDE 0.5 MG/2 ML INHALATION SUSPENSION INH SCH (20:00)
[2021-03-22] MEDS: LATANOPROST 0.005% OPHTH SOLN 2.5 ML OU SCH (20:54)
--- NOTE | 2021-03-22 23:31 | ECHO ---
ECHOCARDIOGRAM DATE OF PROCEDURE: 03/21/2021 Age: 80 Gender: Female Height: 64 inches Weight: 180 pounds Body surface area 1.88 m2 PATIENT LOCATION: Inpatient PCU Room 3217 REFERRING PHYSICIAN: Dr. Kelvin Zavala INDICATION: Dyspnea MEASUREMENTS: 2D Measurements: RV 4.0 cm LV 4.0 cm Septum 1.0 cm Posterior wall 1.0 cm Aortic Root 3.1 cm LA 3.9 cm LVEF 75% Doppler Measurements: AV 1.26 m/s LVOT - 0.93 m/s LVOT diameter 2.1 cm MV-E 95, A 69, EA ratio 1.4 Early mitral deceleration time 140 msec E prime medial 7.9, A prime medial 14, E prime lateral 10 Average E/E prime ratio 10.6/PCWP 15 mmHg RVSP 63 mmHg IVC 2.0 cm COMMENTS: Normal sinus rhythm/sinus bradycardia with intraventricular conduction disturbance. M-mode and 2-dimensional echocardiography was performed with pulse, continuous wave, color flow, and tissue Doppler studies. Normal left ventricular size, wall thickness and hyperkinetic wall motion. Left atrial size upper limits of normal to borderline increased with currently normal Doppler assessment of LV diastolic function and estimated mean left atrial pressure. At least borderline dilated right heart chambers with normal wall motion and Doppler evidence of severe pulmonary hypertension. IVC size upper limits of normal with slightly reduced respiratory collapse in keeping with at least central venous pressure upper limits of normal. Normal aortic diameters. Mild aortic valvular sclerosis without functional abnormality. Mild degenerative changes of the mitral valvular apparatus without inflow tract obstruction and only mild insufficiency. Normal appearing tricuspid valve with mild insufficiency. No apparent intracardiac mass or pericardial effusion.
[2021-03-23] MEDS: IPRATROPIUM 0.5MG/ALBUTEROL 2.5MG INH SOL UD 3ML (DUONEB) NEB SCH ×2 (00:40→07:14)
[2021-03-23 04:00] VITALS: BP 123/61
[2021-03-23 05:40] LABS: BLOOD UREA NITROGEN 26 MG/DL (7-18); CALCIUM LEVEL 8.5 MG/DL (8.8-10.2); CARBON DIOXIDE LEVEL 35 MEQ/L (21-32); CHLORIDE LEVEL 103 MEQ/L (98-107); CREATININE FOR GFR 0.92 MG/DL (0.55-1.30); GLOMERULAR FILTRATION RATE > 60.0 (>39); GLUCOSE, FASTING 116 MG/DL (70-100); MAGNESIUM LEVEL 2.5 MG/DL (1.8-2.4); POTASSIUM SERUM 3.7 MEQ/L (3.5-5.1); SODIUM LEVEL 143 MEQ/L (136-145)
[2021-03-23 06:29] LABS: BASO % 0.2 % (0.0-1.0); EOS # 0.1 10^3/uL (0.0-0.5); EOS % 0.6 % (0.0-3.0); HEMOGLOBIN 12.6 g/dl (12.0-15.5); LYMPH # 2.4 10^3/uL (1.5-5.0); LYMPH % 18.8 % (24.0-44.0); MEAN CORPUSCULAR HEMOGLOBIN 29.9 pg (27.0-33.0); MEAN CORPUSCULAR HGB CONC 32.3 g/dl (32.0-36.5); MEAN CORPUSCULAR VOLUME 92.6 fl (80.0-96.0); MONO # 1.2 10^3/uL (0.0-0.8); MONO % 9.6 % (2.0-8.0); NEUTROPHILS # 8.9 10^3/uL (1.5-8.5); NEUTROPHILS % 70.3 % (36.0-66.0); PLATELET COUNT, AUTOMATED 222 10^3/uL (150-450); RED BLOOD COUNT 4.21 10^6/uL (4.00-5.40); WHITE BLOOD COUNT 12.7 10^3/uL (4.0-10.0)
[2021-03-23] MEDS: BUDESONIDE 0.5 MG/2 ML INHALATION SUSPENSION INH SCH (07:14)
[2021-03-23 08:00] VITALS: BP 125/58
[2021-03-23] MEDS: predniSONE 20 MG TAB PO SCH (08:05)
[2021-03-23] MEDS: DOCUSATE SODIUM 100MG CAPSULE PO SCH (08:06)
[2021-03-23] MEDS: guaiFENesin ER 600 MG TAB PO SCH (08:06)
[2021-03-23] MEDS: ENOXAPARIN 40MG/0.4ML SYRINGE (J1650 PER 10MG) SC SCH (08:06)
[2021-03-23] MEDS ORDERED: MUCI600T31 PO (10:18)
[2021-03-23] MEDS ORDERED: PRED20TA PO (10:18)
[2021-03-23] MEDS ORDERED: LISI20TA33 PO (10:18)
[2021-03-23] MEDS ORDERED: PULM90IN INH (12:01)
--- NOTE | 2021-03-23 12:02 | DS.PDOC ---
Discharge Summary General Date of Admission Mar 20, 2021 at 17:45 Date of Discharge 03/23/2021 Discharge Summary PROCEDURES PERFORMED DURING STAY: [None]. ADMITTING DIAGNOSES / DISCHARGE DIAGNOSES: HTN; s/p Hypertensive urgency Acute hypoxic respiratory failure - possibly 2/2 interstitial lung disease and pulmonary HTN / Right heart failure Leukocytosis Glaucoma DVT prophylaxis COMPLICATIONS/CHIEF COMPLAINT: Shortness of breath HISTORY OF PRESENT ILLNESS: Patient is a 80-year-old female who presented to the ER from urgent care with weakness and shortness of breath. Patient reports that over the duration of 1 month her shortness of breath has been progressively worsening. Patient reports that she sleeps with 2 pillows at night chronically has woken up several times recently with shortness of breath. Patient reports that she had a nuclear stress test completed one year ago with Dr. Lindquist that was reportedly negative. Upon to emergency room, patient's systolic blood pressure was noted to be in the 200s. Patient was admitted to the hospital service for hypertensive urgency and suspected CHF exacerbation. Patient was seen and examined at the bedside. Patient is sitting up in bed, appears to be comfortable without any supplemental oxygen. Denies any chest pain or palpitations. Reports her shortness of breath has improved.Reports a mild cough without any significant expectoration. Denies any abdominal pain, diarrhea, or urinary discomfort. HOSPITAL COURSE: HTN; s/p Hypertensive urgency - BP have remained normotensive while inpatient - EKG reviewed without any ischemic changes - Troponin x3 negative - c/w Lisinopril based on prior outpatient regimen Acute hypoxic respiratory failure - possibly 2/2 interstitial lung disease and pulmonary HTN / Right heart failure - Has noted significant improvement of their breathing; saturating well on room air - BNP elevated - Crackles noted - c/w strict ins/outs, daily weight, fluid restriction - ECHO noted below - c/w Telemetry monitoring - s/p Furosemide; will hold off on standing Furosemide on discharge - Pulmonology has been consulted; appreciate their input; Will c/w Budesonide and prednisone on discharge - Will have outpatient follow up with Pulmonology on discharge Leukocytosis - Reports a non-productive cough - Patient is afebrile - Imaging without any signs of pneumonia - Will continue to hold antibiotics at this time - Procalcitonin negative - Sputum culture noted to be contaminated; will follow up with Pulmonology as an outpatient - Patient has been advised to remain compliant with treatment plan and medications and follow up with pulmonology within the next 7 days Glaucoma - c/w Home medications DVT prophylaxis - c/w Lovenox DISCHARGE MEDICATIONS: Please see below. ALLERGIES: Please see below. PHYSICAL EXAMINATION ON DISCHARGE: Vitals (See below) General: Sitting up in bed and appears to be comfortable, AAOx3 HEENT: NC, AT CVS: +S1S2 Lungs: Fair air entry b/l, there are inspiratory crackles bilaterally. No evidence of wheezing Abdomen: Soft, ND, NT Extremities: No evidence of edema, - Calf tenderness LABORATORY DATA: Please see below. IMAGING: CXR 03/20: Diffuse interstitial lung disease pattern most pronounced in the right upper lobe unchanged from earlier today. Elevated right hemidiaphragm. Mild cardiomegaly. CTA Chest 03/20: 1. No definite pulmonary embolus. 2. Advanced chronic interstitial disease. 3. Scattered bilateral ground-glass opacities, minimal basilar atelectasis, and small left pleural reaction suggest superimposed acute changes. ECHO 03/21: Normal sinus rhythm/sinus bradycardia with intraventricular conduction disturbance. M-mode and 2-dimensional echocardiography was performed with pulse, continuous wave, color flow, and tissue Doppler studies. Normal left ventricular size, wall thickness and hyperkinetic wall motion. Left atrial size upper limits of normal to borderline increased with currently normal Doppler assessment of LV diastolic function and estimated mean left atr ial pressure. At least borderline dilated right heart chambers with normal wall motion and Doppler evidence of severe pulmonary hypertension. IVC size upper limits of normal with slightly reduced respiratory collapse in keeping with at least central venous pressure upper limits of normal. Normal aortic diameters. Mild aortic valvular sclerosis without functional abnormality. Mild degenerative changes of the mitral valvular apparatus without inflow tract obstruction and only mild insufficiency. Normal appearing tricuspid valve with mild insufficiency. No apparent intracardiac mass or pericardial effusion. ACTIVITY: [As tolerated]. DISCHARGE PLAN: Follow-up with primary care provider, and pulmonology within the next 7 days Remain compliant with treatment plan and medications Return to the ER if you experience any problems DISPOSITION: Home Health Service. DISCHARGE CONDITION: [Stable]. TIME SPENT ON DISCHARGE: 35 minutes. Vital Signs/I&Os Vital Signs Date Time Temp Pulse Resp B/P (MAP) Pulse Ox O2 Delivery O2 Flow Rate FiO2 03/23/21 08:00 96.9 102 21 125/58 (80) 89 Room Air 03/22/21 12:04 1.0 I&O- Last 24 Hours up to 6 AM 03/23/21 06:00 Intake Total 420 ml Output Total 1350 ml Balance -930 ml Laboratory Data Labs 24H Laboratory Tests 2 03/23/21 04:47: Immature Granulocyte % (Auto) 0.5, Neutrophils (%) (Auto) 70.3H, Lymphocytes (%) (Auto) 18.8L, Monocytes (%) (Auto) 9.6H, Eosinophils (%) (Auto) 0.6, Basophils (%) (Auto) 0.2, Neutrophils # (Auto) 8.9H, Lymphocytes # (Auto) 2.4, Monocytes # (Auto) 1.2H, Eosinophils # (Auto) 0.1, Basophils # (Auto) 0.0, Nucleated Red Blood Cells % (auto) 0.0, Anion Gap 5L, Glomerular Filtration Rate > 60.0, Calcium Level 8.5L, Magnesium Level 2.5H CBC/BMP Laboratory Tests 03/23/21 04:47 Microbiology Microbiology 03/21/21 Gram Stain - Final, Complete 03/21/21 Sputum Culture - Final, Complete Discharge Medications Scheduled Aspirin (Aspirin EC) 81 Mg Tablet.dr, 81 MG PO QHS, (Reported) Guaifenesin (Mucinex) 600 Mg Tab.er.12h, 600 MG PO BID Latanoprost (Xalatan) 0.005% 2.5ML Drops, 1 DROP OU QHS, (Reported) Lisinopril (Lisinopril) 20 Mg Tablet, 20 MG PO DAILY@2100 Multivitamins (Thera M Plus Tablet) 1 Each Tablet, 1 TAB PO QHS, (Reported) Prednisone (Prednisone) 20 Mg Tablet, 40 MG PO DAILY 40 mg PO daily x 7 days, 30 mg PO daily x 7 days, 20 mg PO daily x 7 days, 10 mg PO daily x 7 days Scheduled PRN Albuterol Sulfate (Albuterol Sulfate Hfa) 8.5 Gm Hfa.aer.ad, 2 PUFFS INH Q4H PRN for SHORTNESS OF BREATH, (Reported) Allergies Coded Allergies: naproxen (Verified Adverse Reaction, Unknown, ITCHING, 03/20/21) ELOY STEWART MD Mar 23, 2021 12:02
== END 2021-03-23 11:39 | disposition home health service (06) | DRG 189 ==
LOC: M ED 13:12 → M ED INP 17:45 → ENRESERV 19:37 → M PCU 20:20
PROVIDERS: ADMIT Internal Medicine; ATTEND Internal Medicine
DX: J96.01 Acute respiratory failure with hypoxia (principal); J84.9 Interstitial pulmonary disease, unspecified; I16.0 Hypertensive urgency; I50.9 Heart failure, unspecified; D72.829 Elevated white blood cell count, unspecified; J47.9 Bronchiectasis, uncomplicated; I11.0 Hypertensive heart disease with heart failure; I50.810 Right heart failure, unspecified; I27.20 Pulmonary hypertension, unspecified; H40.9 Unspecified glaucoma; Z85.3 Personal history of malignant neoplasm of breast; Z92.3 Personal history of irradiation; Z90.49 Acquired absence of other specified parts of digestive tract; Z20.822 Contact with and (suspected) exposure to COVID-19; Z79.82 Long term (current) use of aspirin; Z79.899 Other long term (current) drug therapy; Z88.6 Allergy status to analgesic agent

== ENCOUNTER → 2021-03-20 | Outpatient (CLI) | payer MEDICARE ==
[~2021-03-20] MED LIST changes: -ACETAMINOPHEN 325 MG TAB PO; +ALBU8.5H INH; +ASPI81TA26 PO; +FURO20TA2 PO; +LATA0.0013 OU; +LISI10TA22 PO; -PHENYLEPHRINE HCL 10 % OPHTH. SOL 5ML XX; -PROPARACAINE 0.5% OPHTH SOL 15ML OD; +VITA100067 PO; +VITMTA PO; +XALA0.007 OU; +vitamin b PO
--- NOTE | 2021-03-20 12:39 | REP ---
INDICATION: SOB, TACHYPNEA, HYPOXIA COMPARISON: None. TECHNIQUE: PA and lateral. FINDINGS: Diffuse chronic fibrosis and interstitial changes are suggested. Superimposed scattered airspace disease cannot be excluded. No definite effusion. No obvious pneumothorax. Evaluation of the mediastinum and cardiac silhouette is limited by overlying opacities. IMPRESSION: Chronic fibrosis and interstitial disease. Cannot exclude scattered superimposed multifocal infiltrates. <Electronically signed by Hernan Durant > 03/20/21 [id number]
[2021-03-20 13:48] LABS: BASO # 0.1 10^3/uL (0.0-0.2); BASO % 0.6 % (0.0-1.0); EOS # 0.1 10^3/uL (0.0-0.5); EOS % 0.9 % (0.0-3.0); HEMATOCRIT 42.7 % (36.0-47.0); HEMOGLOBIN 13.5 g/dl (12.0-15.5); LYMPH # 1.3 10^3/uL (1.5-5.0); LYMPH % 10.5 % (24.0-44.0); MEAN CORPUSCULAR HEMOGLOBIN 29.7 pg (27.0-33.0); MEAN CORPUSCULAR HGB CONC 31.6 g/dl (32.0-36.5); MEAN CORPUSCULAR VOLUME 93.8 fl (80.0-96.0); MONO % 7.6 % (2.0-8.0); NEUTROPHILS % 80.1 % (36.0-66.0); PLATELET COUNT, AUTOMATED 192 10^3/uL (150-450); RED BLOOD COUNT 4.55 10^6/uL (4.00-5.40); WHITE BLOOD COUNT 12.5 10^3/uL (4.0-10.0)
[2021-03-20 14:20] LABS: ALBUMIN 3.6 GM/DL (3.2-5.2); ALT/SGPT 20 U/L (12-78); BILIRUBIN,TOTAL 0.7 MG/DL (0.2-1.0); BLOOD UREA NITROGEN 14 MG/DL (7-18); CALCIUM LEVEL 8.8 MG/DL (8.8-10.2); CARBON DIOXIDE LEVEL 27 MEQ/L (21-32); CHLORIDE LEVEL 105 MEQ/L (98-107); CK-MB VALUE MASS 1.1 NG/ML (<3.6); CPK CREATINE PHOSPHOKINASE 45 U/L (26-192); CREATININE FOR GFR 0.86 MG/DL (0.55-1.30); GLOMERULAR FILTRATION RATE > 60.0 (>39); GLUCOSE, FASTING 127 MG/DL (70-100); MAGNESIUM LEVEL 2.3 MG/DL (1.8-2.4); MB/CK RELATIVE INDEX 2.44 (< OR =4); NT-PRO BNP 879 PG/ML (<450); PHOSPHORUS LEVEL 2.3 MG/DL (2.5-4.9); SODIUM LEVEL 139 MEQ/L (136-145); TOTAL PROTEIN 7.1 GM/DL (6.4-8.2); TROPONIN I < 0.02 NG/ML (< 0.10)
== END ==
LOC: M WUC 11:55
PROVIDERS: ATTEND Nurse Practitioner Family
DX: R06.02 Shortness of breath (principal); J84.10 Pulmonary fibrosis, unspecified

== ENCOUNTER 2021-05-17 09:48 | Inpatient (IN) | payer MEDICARE ==
[~2021-05-17] VITALS: Ht 162.6 cm; Wt 79.5 kg
[~2021-05-17 09:48] MED LIST changes: +ALBU8.5H INH; +ASPI81TA26 PO; +LISI20TA33 PO; +MUCI600T31 PO; +PRED20TA PO; +PULM90IN INH; +VITMTA PO; +XALA0.007 OU
[2021-05-17] MEDS ORDERED: FUROSEMIDE 40MG/4ML VIAL (J1940) IV ONE (10:15)
[2021-05-17 11:18] LABS: BASO # 0.1 10^3/uL (0.0-0.2); BASO % 0.6 % (0.0-1.0); EOS # 0.2 10^3/uL (0.0-0.5); EOS % 1.4 % (0.0-3.0); HEMATOCRIT 40.7 % (36.0-47.0); HEMOGLOBIN 13.5 g/dl (12.0-15.5); LYMPH % 8.3 % (24.0-44.0); MEAN CORPUSCULAR HGB CONC 33.2 g/dl (32.0-36.5); MEAN CORPUSCULAR VOLUME 93.6 fl (80.0-96.0); MONO % 7.9 % (2.0-8.0); NEUTROPHILS # 10.1 10^3/uL (1.5-8.5); NEUTROPHILS % 81.2 % (36.0-66.0); PLATELET COUNT, AUTOMATED 199 10^3/uL (150-450); RED BLOOD COUNT 4.35 10^6/uL (4.00-5.40); WHITE BLOOD COUNT 12.5 10^3/uL (4.0-10.0)
--- NOTE | 2021-05-17 11:40 | REP ---
INDICATION: DYSPNEA/COUGH COMPARISON: 03/20/2021 TECHNIQUE: Portable AP view of the chest FINDINGS: Diffuse advanced fibrosis is similar to prior examination. Subtle superimposed primarily left lower lobe infiltrate cannot be excluded. IMPRESSION: Limited examination due to advanced fibrosis. Cannot exclude superimposed left lower lobe opacity. <Electronically signed by Hernan Durant > 05/17/21 1137
[2021-05-17 11:56] LABS: ALBUMIN 3.4 GM/DL (3.2-5.2); ALT/SGPT 23 U/L (12-78); BILIRUBIN,DIRECT 0.2 MG/DL (0.0-0.2); BILIRUBIN,TOTAL 0.7 MG/DL (0.2-1.0); BLOOD UREA NITROGEN 12 MG/DL (7-18); CALCIUM LEVEL 8.7 MG/DL (8.8-10.2); CARBON DIOXIDE LEVEL 29 MEQ/L (21-32); CHLORIDE LEVEL 106 MEQ/L (98-107); CK-MB VALUE MASS < 1.0 NG/ML (<3.6); CPK CREATINE PHOSPHOKINASE 40 U/L (26-192); CREATININE FOR GFR 0.95 MG/DL (0.55-1.30); GLOMERULAR FILTRATION RATE > 60.0 (>39); GLUCOSE, FASTING 124 MG/DL (70-100); POTASSIUM SERUM 4.2 MEQ/L (3.5-5.1); SODIUM LEVEL 139 MEQ/L (136-145); TOTAL PROTEIN 6.7 GM/DL (6.4-8.2)
[2021-05-17 11:57] LABS: NT-PRO BNP 1052 PG/ML (<450); TROPONIN I < 0.02 NG/ML (< 0.10)
[2021-05-17] MEDS ORDERED: HOME MED LIST COMPLETE! XX SCH (13:45)
[2021-05-17] MEDS ORDERED: IPRATROPIUM 0.5MG/ALBUTEROL 2.5MG INH SOL UD 3ML (DUONEB) NEB PRN (15:30)
--- NOTE | 2021-05-17 16:23 | HPE ---
HISTORY AND PHYSICAL DATE OF ADMISSION: 05/17/2021 PRIMARY CARE PROVIDER: [facility] ADMISSION DIAGNOSIS: COPD exacerbation/acute on chronic cor pulmonale. HISTORY OF PRESENT ILLNESS: Anna Strickland is a 80-year-old patient who has known interstitial pulmonary fibrosis with right-sided heart failure and pulmonary hypertension. She has been having increasing peripheral edema for the past week. She has been increasingly short of breath. She does have an appointment with pulmonology in their office next week but she is too short of breath to wait until then so she came to the Emergency Room. MEDICAL HISTORY: She has a history of advanced chronic interstitial disease seen on CT of the chest 05/20/2021, scattered bilateral ground glass opacities also noted. She had an echocardiogram 03/21/2021 that showed borderline dilated right heart chambers, severe pulmonary hypertension by Doppler measurement. Left ventricular systolic and diastolic function were normal. She denied recent fever, chills, respiratory illness, hemoptysis. She has just been increasingly edematous and then became more and more short of breath. No past history of thromboembolic disease. She has a history of hypertension, stopped taking her medicines years ago and then has a history of glaucoma. SURGICAL HISTORY: Breast cancer status post lumpectomy, radiation therapy and Tamoxifen. This was back in the 1980s. Hysterectomy with appendectomy, wisdom teeth extraction, tonsillectomy. FAMILY HISTORY: Noncontributory. SOCIAL HISTORY: No smoking and no excessive alcohol. She is . 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 MEDICATIONS: 1. Albuterol inhaler two puffs every 4 hours. 2. Aspirin 81 mg daily. 3. Eye drops. ALLERGIES: NAPROXEN. REVIEW OF SYSTEMS: She has had exertional dyspnea. She has had no hemoptysis, no sputum production, no orthopnea. No chest pain or palpitations. PHYSICAL EXAMINATION: Vital signs per flow sheet. O2 saturation 84% on room air upon arrival. General Appearance: This is a chronically ill-appearing female resting comfortably, able to speak full sentences. Feeling much better with application of oxygen. HEENT: Pupils equal, round, reactive to light. Oropharynx benign. Neck: No masses. Lungs: Decreased breath sounds, fibrotic rales diffusely. Good air movement. Heart: Regular rate and rhythm. A 1/6 holosystolic murmur. Abdomen: Soft, nontender. No masses. Extremities: No clubbing, cyanosis. There is 1+ pitting edema to above the knees. Neurologic exam: Alert, oriented, conversant. She moves arms and legs with equal strength. Reflexes are normal. Peripheral pulses were full and equal in both legs. LABS: White count 12.5, hemoglobin 13.5, platelets 199. Sodium 139, potassium 4.2, BUN 12, creatinine 0.9, glucose 124. BNP was 1000. Chart review shows that during her March 2021 admission, there was a workup directed by Dr. Kamari Freitas. Rheumatoid workup was negative. ALAN was negative. Scleroderma antibody was negative. An alpha-1 antitrypsin level was normal at 175. An angiographic CT of the chest from that admission showed no pulmonary embolism. IMPRESSION AND PLAN: 1. [id number] right-sided heart failure/cor pulmonale secondary to pulmonary interstitial disease. Plan: She should be admitted to a medical bed. Supplemental oxygen will be given. She will be diuresed a liter per day until her pulmonary function improves and peripheral edema has resolved. We will get daily labs to follow renal function. 2. Pulmonary interstitial disease. She has an appointment with the coater next week. NATALIYA
[2021-05-17] MEDS: FUROSEMIDE 20MG/2ML VIAL (J1940) IV SCH (17:36)
[2021-05-17] MEDS: IPRATROPIUM 0.5MG/ALBUTEROL 2.5MG INH SOL UD 3ML (DUONEB) NEB SCH (18:33)
--- NOTE | 2021-05-17 19:00 | ECGEPIP ---
[facility] - ED Test Date: 2021-05-17 Pat Name: LUIS IGLESIAS Department: Room: - Gender: Female Turner Machine: STANLEY : 1940 Requested By: Cornel Suggs Order Number: [id number] Reading MD: Stephanie Patel Measurements Intervals [place] Rate: 93 P: 39 MI: 156 QRS: 17 QRSD: 112 T: 21 QT: 394 QTc: 489 Interpretive Statements Normal sinus rhythm Possible Left atrial enlargement Right bundle branch block NSTTW abnormalities prolonged qtc similar 03/20/21 Electronically Signed on 05-17-2021 18:59:58 EDT by Stephanie Patel
[2021-05-17 21:23] VITALS: BP 171/88
[2021-05-18] VITALS (7 sets, daily range): BP systolic 106–162; BP diastolic 56–87
[2021-05-18] MEDS: FUROSEMIDE 20MG/2ML VIAL (J1940) IV SCH ×4 (00:24→17:31)
[2021-05-18] MEDS: IPRATROPIUM 0.5MG/ALBUTEROL 2.5MG INH SOL UD 3ML (DUONEB) NEB SCH ×4 (02:34→19:45)
[2021-05-18 06:59] LABS: HEMATOCRIT 37.9 % (36.0-47.0); HEMOGLOBIN 12.6 g/dl (12.0-15.5); MEAN CORPUSCULAR HEMOGLOBIN 30.9 pg (27.0-33.0); MEAN CORPUSCULAR HGB CONC 33.2 g/dl (32.0-36.5); MEAN CORPUSCULAR VOLUME 92.9 fl (80.0-96.0); PLATELET COUNT, AUTOMATED 199 10^3/uL (150-450); RED BLOOD COUNT 4.08 10^6/uL (4.00-5.40); WHITE BLOOD COUNT 9.8 10^3/uL (4.0-10.0)
[2021-05-18 07:26] LABS: BLOOD UREA NITROGEN 14 MG/DL (7-18); CALCIUM LEVEL 8.3 MG/DL (8.8-10.2); CARBON DIOXIDE LEVEL 29 MEQ/L (21-32); CHLORIDE LEVEL 101 MEQ/L (98-107); CREATININE FOR GFR 0.89 MG/DL (0.55-1.30); GLOMERULAR FILTRATION RATE > 60.0 (>39); GLUCOSE, FASTING 91 MG/DL (70-100); POTASSIUM SERUM 3.5 MEQ/L (3.5-5.1); SODIUM LEVEL 140 MEQ/L (136-145)
[2021-05-18] MEDS: ENOXAPARIN 40MG/0.4ML SYRINGE (J1650 PER 10MG) SC SCH (09:25)
[2021-05-18] MEDS ORDERED: POTASSIUM CHLORIDE 10 MEQ SR TABLET PO ONE (10:25)
--- NOTE | 2021-05-18 10:44 | IPN ---
PROGRESS NOTE DATE: 05/18/2021 SUBJECTIVE: Anna is seen [facility]. She had a good diuresis. She diuresed 2700 mL. She is much less short of breath. Her edema is improved and she feels almost back to baseline. OBJECTIVE: Afebrile, vital signs stable. HEENT unremarkable. Lungs have fibrotic rales bilaterally. Heart: Regular rate and rhythm. A 1/6 systolic ejection murmur. Abdomen: Soft, nontender. No masses. Trace peripheral edema. LABS: White count 9.8, hemoglobin 12.6, platelets 199, sodium 135, potassium 3.5, BUN 14, creatinine 0.8, glucose 91. IMPRESSION AND PLAN: 1. [id number] cor pulmonale. Continue diuresis. Expect she can go back on the diuretic tomorrow. Could be discharged tomorrow or Friday. 2. Borderline hypokalemia. We will stay ahead of her potassium with supplemental potassium today. 3. Severe pulmonary interstitial disease. She has an appointment to see Pulmonary to establish care next week. 4. Probably discharge tomorrow or Friday. NATALIYA
[2021-05-19] MEDS: FUROSEMIDE 20MG/2ML VIAL (J1940) IV SCH ×3 (00:14→12:35)
[2021-05-19] MEDS: IPRATROPIUM 0.5MG/ALBUTEROL 2.5MG INH SOL UD 3ML (DUONEB) NEB SCH ×3 (01:08→13:11)
[2021-05-19 06:00] VITALS: BP 124/64
[2021-05-19 06:54] LABS: HEMATOCRIT 38.3 % (36.0-47.0); HEMOGLOBIN 12.8 g/dl (12.0-15.5); MEAN CORPUSCULAR HEMOGLOBIN 30.7 pg (27.0-33.0); MEAN CORPUSCULAR HGB CONC 33.4 g/dl (32.0-36.5); MEAN CORPUSCULAR VOLUME 91.8 fl (80.0-96.0); PLATELET COUNT, AUTOMATED 201 10^3/uL (150-450); RED BLOOD COUNT 4.17 10^6/uL (4.00-5.40); WHITE BLOOD COUNT 9.7 10^3/uL (4.0-10.0)
[2021-05-19 07:17] LABS: CREATININE FOR GFR 0.99 MG/DL (0.55-1.30); GLOMERULAR FILTRATION RATE 57.6 (>39); POTASSIUM SERUM 3.6 MEQ/L (3.5-5.1)
[2021-05-19] MEDS ORDERED: POTASSIUM CHLORIDE 10 MEQ SR TABLET PO SCH (09:00)
[2021-05-19] MEDS: ENOXAPARIN 40MG/0.4ML SYRINGE (J1650 PER 10MG) SC SCH (09:09)
[2021-05-19 10:00] VITALS: BP 147/80
[2021-05-19] MEDS ORDERED: KLOR10TA76 PO (11:20)
[2021-05-19] MEDS ORDERED: FURO20TA2 PO (11:20)
--- NOTE | 2021-05-19 11:24 | DS.PDOC ---
Discharge Summary General Date of Admission May 17, 2021 at 15:28 Date of Discharge 05/19/21 - PCP is [facility] Attending Physician: Dwayne French MD Discharge Summary PROCEDURES PERFORMED DURING STAY: [None]. ADMITTING DIAGNOSES: 1. . DISCHARGE DIAGNOSES: 1. . COMPLICATIONS/CHIEF COMPLAINT: Cor Pulmonale, Chronic. HISTORY OF PRESENT ILLNESS: . HOSPITAL COURSE: . DISCHARGE MEDICATIONS: Please see below. ALLERGIES: Please see below. PHYSICAL EXAMINATION ON DISCHARGE: VITAL SIGNS: Please see below. GENERAL: HEENT: NECK: CARDIOVASCULAR EXAMINATION: RESPIRATORY EXAMINATION: ABDOMINAL EXAMINATION: EXTREMITIES: SKIN: NEUROLOGICAL EXAMINATION: PSYCHIATRIC EXAMINATION: LABORATORY DATA: Please see below. IMAGING: PROGNOSIS: ACTIVITY: [As tolerated]. DIET: DISCHARGE PLAN: DISPOSITION: . DISCHARGE INSTRUCTIONS: 1. . ITEMS TO FOLLOWUP ON ON OUTPATIENT: 1. . DISCHARGE CONDITION: [Stable]. TIME SPENT ON DISCHARGE: minutes. Vital Signs/I&Os Vital Signs Date Time Temp Pulse Resp B/P (MAP) Pulse Ox O2 Delivery O2 Flow Rate FiO2 05/19/21 10:24 90 Nasal Cannula 3.0 05/19/21 06:00 97.8 84 16 124/64 (84) I&O- Last 24 Hours up to 6 AM 05/19/21 06:00 Intake Total 1025 ml Output Total 750 ml Balance 275 ml Laboratory Data Labs 24H Laboratory Tests 2 05/19/21 05:49: Nucleated Red Blood Cells % (auto) 0.0, Anion Gap 6L, Glomerular Filtration Rate 57.6, Calcium Level 9.0 CBC/BMP Laboratory Tests 05/19/21 05:49 Microbiology Microbiology 05/17/21 Respiratory Virus Panel (PCR) (IRVIN) - Final, Complete 05/17/21 Blood Culture - Preliminary, Resulted No Growth after 48 hours. All Specime... 05/17/21 Blood Culture - Preliminary, Resulted No Growth after 48 hours. All Specime... Discharge Medications Scheduled Aspirin (Aspirin EC) 81 Mg Tablet.dr, 81 MG PO DAILY, (Reported) Furosemide (Furosemide) 20 Mg Tablet, 20 MG PO QAM Latanoprost (Xalatan) 0.005% 2.5ML Drops, 1 DROP OU QHS, (Reported) Multivitamins (Thera M Plus Tablet) 1 Each Tablet, 1 TAB PO DAILY, (Reported) Potassium Chloride (Klor-Con M10) 10 Meq Tab.er.prt, 40 MEQ PO DAILY Scheduled PRN Albuterol Sulfate (Albuterol Sulfate Hfa) 8.5 Gm Hfa.aer.ad, 2 PUFFS INH Q4H PRN for SHORTNESS OF BREATH, (Reported) Allergies Coded Allergies: naproxen (Verified Adverse Reaction, Unknown, ITCHING, 03/20/21) Dwayne French MD May 19, 2021 11:24
== END 2021-05-19 15:55 | disposition home or self-care (01) | DRG 315 ==
LOC: M ED 09:48 → M ED INP 15:28 → M MSPAV 21:22
PROVIDERS: ADMIT Family Medicine; ATTEND Family Medicine
DX: I27.29 Other secondary pulmonary hypertension (principal); J44.1 Chronic obstructive pulmonary disease with (acute) exacerbation; J84.10 Pulmonary fibrosis, unspecified; E87.6 Hypokalemia; I50.813 Acute on chronic right heart failure; Z79.82 Long term (current) use of aspirin; Z79.899 Other long term (current) drug therapy

== ENCOUNTER → 2022-04-04 | Outpatient (CLI) | payer MEDICARE ==
[~2022-04-04] MED LIST changes: +POTA-136 PO
== END ==
LOC: M RAD 10:07
PROVIDERS: ATTEND Internal Medicine Pulmonary Disease
DX: J84.10 Pulmonary fibrosis, unspecified (principal)

== ENCOUNTER → 2022-04-04 | Outpatient (REF) | payer MEDICARE | LOC: M LAB REF 11:20 | PROVIDERS: ATTEND Internal Medicine Pulmonary Disease | DX: J47.9 Bronchiectasis, uncomplicated (principal) ==

== ENCOUNTER → 2022-04-10 | Outpatient (CLI) | payer MEDICARE | LOC: M RAD 09:02 | PROVIDERS: ATTEND Internal Medicine Pulmonary Disease | DX: J47.9 Bronchiectasis, uncomplicated (principal) ==

== ENCOUNTER 2022-07-19 13:05 | Inpatient (IN) | payer MEDICARE ==
[~2022-07-19] VITALS: Ht 162.6 cm; Wt 76.4 kg
[2022-07-19] VITALS (7 sets, daily range): BP systolic 144–175; BP diastolic 81–90; O2SAT 87–96
[2022-07-19] MEDS ORDERED: ALBU2.5V10 INH (13:15)
[2022-07-19] MEDS ORDERED: methylPREDNISolone 125MG 2ML VIAL IV ONE (14:25)
[2022-07-19 14:26] LABS: BASO # 0.1 10^3/uL (0.0-0.2); BASO % 0.5 % (0.0-1.0); EOS # 0.2 10^3/uL (0.0-0.5); EOS % 1.8 % (0.0-3.0); HEMATOCRIT 41.9 % (36.0-47.0); HEMOGLOBIN 13.2 g/dl (12.0-15.5); LYMPH % 8.1 % (24.0-44.0); MEAN CORPUSCULAR HEMOGLOBIN 30.8 pg (27.0-33.0); MEAN CORPUSCULAR HGB CONC 31.5 g/dl (32.0-36.5); MEAN CORPUSCULAR VOLUME 97.7 fl (80.0-96.0); MONO # 1.1 10^3/uL (0.0-0.8); MONO % 8.9 % (2.0-8.0); NEUTROPHILS # 9.9 10^3/uL (1.5-8.5); NEUTROPHILS % 80.5 % (36.0-66.0); PLATELET COUNT, AUTOMATED 189 10^3/uL (150-450); RED BLOOD COUNT 4.29 10^6/uL (4.00-5.40); WHITE BLOOD COUNT 12.4 10^3/uL (4.0-10.0)
[2022-07-19 15:22] LABS: ALBUMIN 3.4 GM/DL (3.2-5.2); ALT/SGPT 22 U/L (12-78); BILIRUBIN,DIRECT 0.2 MG/DL (0.0-0.2); BILIRUBIN,TOTAL 0.7 MG/DL (0.2-1.0); BLOOD UREA NITROGEN 22 MG/DL (7-18); CALCIUM LEVEL 9.2 MG/DL (8.8-10.2); CARBON DIOXIDE LEVEL 33 MEQ/L (21-32); CHLORIDE LEVEL 103 MEQ/L (98-107); CK-MB VALUE MASS < 1.0 NG/ML (<3.6); CPK CREATINE PHOSPHOKINASE 29 U/L (26-192); CREATININE FOR GFR 0.92 MG/DL (0.55-1.30); GLOMERULAR FILTRATION RATE > 60.0 (>32); GLUCOSE, FASTING 116 MG/DL (70-100); MB/CK RELATIVE INDEX 3.45 (< OR =4); NT-PRO BNP 1281 PG/ML (<450); POTASSIUM SERUM 4.2 MEQ/L (3.5-5.1); SODIUM LEVEL 142 MEQ/L (136-145); THYROXINE (T4) 8.3 UG/DL (4.5-12.0); TOTAL PROTEIN 7.1 GM/DL (6.4-8.2)
[2022-07-19] MEDS ORDERED: FUROSEMIDE 40MG/4ML VIAL (J1940) IV ONE (15:25)
[2022-07-19 16:10] LABS: CK-MB VALUE MASS < 1.0 NG/ML (<3.6); CPK CREATINE PHOSPHOKINASE 27 U/L (26-192)
[2022-07-19] MEDS ORDERED: ISOVUE-370 76% 100ML VIAL As Ordered ONE (16:24)
[2022-07-19] MEDS ORDERED: ACETAMINOPHEN TAB 650MG DOSE (2X325MG) PO PRN (17:00)
[2022-07-19] MEDS ORDERED: HOME MED LIST COMPLETE! XX SCH (17:05)
[2022-07-19] MEDS ORDERED: IPRATROPIUM 0.5MG/ALBUTEROL 2.5MG INH SOL UD 3ML (DUONEB) NEB PRN (17:10)
[2022-07-19] MEDS: cefTRIAXone SOD 1 GM in D5W MINI-BAG PLUS 50 ML IV SCH (18:24)
[2022-07-19] MEDS: MULTIVITAMINS/MINERALS THERAP 1 TAB PO SCH (20:28)
[2022-07-19] MEDS: FUROSEMIDE 20MG/2ML VIAL (J1940) IV SCH (20:28)
[2022-07-19] MEDS: METOPROLOL TART 12.5 MG PER 1/2 TAB PO SCH (20:28)
[2022-07-19] MEDS: ASPIRIN 81MG ENTERIC TABLET PO SCH (20:28)
[2022-07-19] MEDS: AZITHROMYCIN INJ 500 MG, VIAL MATE ADAPTER 1 EACH in NS 250 ML IV SCH (20:31)
[2022-07-19] MEDS: IPRATROPIUM 0.5MG/ALBUTEROL 2.5MG INH SOL UD 3ML (DUONEB) NEB SCH (20:35)
[2022-07-20] VITALS (25 sets, daily range): BP systolic 124–151; BP diastolic 63–75; O2SAT 88–98
[2022-07-20] MEDS: IPRATROPIUM 0.5MG/ALBUTEROL 2.5MG INH SOL UD 3ML (DUONEB) NEB SCH ×4 (01:10→20:07)
[2022-07-20 06:38] LABS: HEMATOCRIT 38.5 % (36.0-47.0); HEMOGLOBIN 12.7 g/dl (12.0-15.5); MEAN CORPUSCULAR HEMOGLOBIN 31.4 pg (27.0-33.0); MEAN CORPUSCULAR VOLUME 95.3 fl (80.0-96.0); PLATELET COUNT, AUTOMATED 187 10^3/uL (150-450); RED BLOOD COUNT 4.04 10^6/uL (4.00-5.40); WHITE BLOOD COUNT 11.9 10^3/uL (4.0-10.0)
[2022-07-20 07:29] LABS: BLOOD UREA NITROGEN 24 MG/DL (7-18); CALCIUM LEVEL 8.9 MG/DL (8.8-10.2); CARBON DIOXIDE LEVEL 33 MEQ/L (21-32); CHLORIDE LEVEL 99 MEQ/L (98-107); GLOMERULAR FILTRATION RATE > 60.0 (>32); GLUCOSE, FASTING 117 MG/DL (70-100); MAGNESIUM LEVEL 2.3 MG/DL (1.8-2.4); POTASSIUM SERUM 3.2 MEQ/L (3.5-5.1); SODIUM LEVEL 138 MEQ/L (136-145)
[2022-07-20] MEDS ORDERED: POTASSIUM CHLORIDE 10MEQ SR TABLET PO ONE ×2 (07:30→13:00)
[2022-07-20] MEDS: FUROSEMIDE 20MG/2ML VIAL (J1940) IV SCH ×2 (08:17→20:40)
[2022-07-20] MEDS: methylPREDNISolone 40MG 1ML VIAL IV SCH (08:17)
[2022-07-20] MEDS: METOPROLOL TART 12.5 MG PER 1/2 TAB PO SCH (08:18)
[2022-07-20] MEDS: ENOXAPARIN 40MG/0.4ML SYRINGE (J1650 PER 10MG) SC SCH (08:19)
[2022-07-20] MEDS ORDERED: METOPROLOL TART 12.5 MG PER 1/2 TAB PO ONE (10:10)
[2022-07-20] MEDS: cefTRIAXone SOD 1 GM in D5W MINI-BAG PLUS 50 ML IV SCH (17:49)
[2022-07-20] MEDS: ASPIRIN 81MG ENTERIC TABLET PO SCH (20:40)
[2022-07-20] MEDS: MULTIVITAMINS/MINERALS THERAP 1 TAB PO SCH (20:40)
[2022-07-20] MEDS: AZITHROMYCIN INJ 500 MG, VIAL MATE ADAPTER 1 EACH in NS 250 ML IV SCH (20:41)
[2022-07-20] MEDS: METOPROLOL TART 25 MG TABLET PO SCH (20:42)
[2022-07-21] VITALS (13 sets, daily range): BP systolic 135; BP diastolic 65–69; O2SAT 93–98
[2022-07-21] MEDS: IPRATROPIUM 0.5MG/ALBUTEROL 2.5MG INH SOL UD 3ML (DUONEB) NEB SCH ×2 (00:38→07:06)
[2022-07-21 05:18] LABS: HEMATOCRIT 38.6 % (36.0-47.0); HEMOGLOBIN 12.4 g/dl (12.0-15.5); MEAN CORPUSCULAR HEMOGLOBIN 30.8 pg (27.0-33.0); MEAN CORPUSCULAR HGB CONC 32.1 g/dl (32.0-36.5); MEAN CORPUSCULAR VOLUME 95.8 fl (80.0-96.0); PLATELET COUNT, AUTOMATED 182 10^3/uL (150-450); RED BLOOD COUNT 4.03 10^6/uL (4.00-5.40); WHITE BLOOD COUNT 12.4 10^3/uL (4.0-10.0)
[2022-07-21 05:52] LABS: BLOOD UREA NITROGEN 28 MG/DL (7-18); CALCIUM LEVEL 8.8 MG/DL (8.8-10.2); CARBON DIOXIDE LEVEL 32 MEQ/L (21-32); CHLORIDE LEVEL 101 MEQ/L (98-107); CREATININE FOR GFR 0.89 MG/DL (0.55-1.30); GLOMERULAR FILTRATION RATE > 60.0 (>32); GLUCOSE, FASTING 100 MG/DL (70-100); MAGNESIUM LEVEL 2.3 MG/DL (1.8-2.4); SODIUM LEVEL 138 MEQ/L (136-145)
[2022-07-21] MEDS: ENOXAPARIN 40MG/0.4ML SYRINGE (J1650 PER 10MG) SC SCH (09:12)
[2022-07-21] MEDS: FUROSEMIDE 20MG/2ML VIAL (J1940) IV SCH (09:12)
[2022-07-21] MEDS: methylPREDNISolone 40MG 1ML VIAL IV SCH (09:12)
[2022-07-21] MEDS: METOPROLOL TART 25 MG TABLET PO SCH (09:13)
[2022-07-21] MEDS ORDERED: METO1TAB87 PO (09:24)
[2022-07-21] MEDS ORDERED: CEFD300C41 PO (09:24)
[2022-07-21] MEDS ORDERED: PRED10TA2 PO (09:24)
[2022-07-21] MEDS ORDERED: AZIT500T5 PO (09:24)
[2022-07-22 14:08] LABS: MYCOPLASMA PNEUMONIAE IgG <100 U/mL (0-99); MYCOPLASMA PNEUMONIAE IgM <770 U/mL (0-769)
[2022-07-23 17:08] LABS: BODY FLUID CULTURE Not indicated. (.); ORGANISM ID Not indicated. (.); SPECIMEN SOURCE Urine (.); URINE STREP PNEUMONIAE ANTIGEN Negative (Negative)
== END 2022-07-21 13:40 | disposition home or self-care (01) | DRG 196 ==
LOC: M ED 13:05 → M ED INP 16:21 → M PCU 18:10
PROVIDERS: ADMIT Internal Medicine; ATTEND Internal Medicine
DX: J84.9 Interstitial pulmonary disease, unspecified (principal); J81.0 Acute pulmonary edema; I27.29 Other secondary pulmonary hypertension; I50.810 Right heart failure, unspecified; I16.0 Hypertensive urgency; Z66 Do not resuscitate; Z79.82 Long term (current) use of aspirin; Z79.899 Other long term (current) drug therapy; Z88.6 Allergy status to analgesic agent; Z99.81 Dependence on supplemental oxygen; Z85.3 Personal history of malignant neoplasm of breast; Z92.3 Personal history of irradiation